=== PATIENT | female | born 1990 ===

== ENCOUNTER 2023-05-30 20:30 | Emergency (ER) | payer OTHER, MEDICAID ==
[2023-05-30] MEDS ORDERED: Acetaminophen 325 MG Tab PO ONE (20:49)
[2023-05-30] MEDS ORDERED: Bacitracin Oint 1 GM U/D Packet TOP ONE (20:50)
[2023-05-30] MEDS ORDERED: Sodium Chloride 0.9% 1,000 ML IV ONE (20:56)
[2023-05-30] MEDS ORDERED: Metoclopramide 10 MG/2 ML SDV IVPUSH ONE (20:57)
== END 2023-05-31 00:58 | disposition home or self-care (01) ==
LOC: MW.ED 20:30
DX: O9A.212 Injury, poisoning and certain other consequences of external causes complicating pregnancy, second trimester (principal); S30.811A Abrasion of abdominal wall, initial encounter; S50.311A Abrasion of right elbow, initial encounter; S90.512A Abrasion, left ankle, initial encounter; Z88.5 Allergy status to narcotic agent; V49.9XXA Car occupant (driver) (passenger) injured in unspecified traffic accident, initial encounter; Y92.410 Unspecified street and highway as the place of occurrence of the external cause
CPT/HCPCS: 96361; 96374; 99283; A9270; J2765; J7030